=== PATIENT | female | born 1960 | race Caucasian/White ===

== ENCOUNTER 2018-05-17 03:16 | Inpatient (IN) | payer OTHER ==
[~2018-05-17] VITALS: Ht 160 cm; Wt 81.2 kg
[~2018-05-17 03:16] MED LIST: ABILIFY2 MG PO; DEXILANT60 M1 PO; DIOVAN320 M1 PO; FIORINAL 50-321 EACH; FLONASE ALLERG9.9 ML; LEVOTHYROXINE175 MCG PO; WELLBUTRIN XL300 M2 PO; XANAX0.5 M1 PO
--- NOTE | 2018-05-17 09:19 | Surg Short-stay <48hrs Dis Sum ---
Visit Information Visit Dates Admission Date: 05/17/18 Discharge Date: 05/18/18 Surgical Short Stay DC Summary Admission Diagnosis: Primary osteoarthritis right hip Final Diagnosis: same sp Total hip arthroplasty, right Procedure(s): Total hip arthroplasty, right Summary/Significant Findings: Patient was admitted to the hospital for an elective total joint replacement. Procedure was tolerated well and patient was transferred to a general surgical floor. Diet was advanced and tolerated. Physical therapy performed evaluation and treatment. At time of hospital discharge, vital signs were stable, neurovascular status was intact, and pain was controlled with the use of oral pain medications. Condition at Discharge: stable Discharge Disposition: home health services Discharge instructions provided to patient/family: Yes Post discharge follow-up plan: Follow up with Dr. Tuttle in 6 weeks from date of surgery. Please call his office to schedule/confirm this appointment.
--- NOTE | 2018-05-17 09:21 | Patient Discharge Instructions ---
Discharge Instructions General Discharge Information You were seen/treated for: Primary osteoarthritis, right hip You had these procedures: Total hip arthroplasty, right Watch for these problems: Increasing pain despite the use of pain medication Increasing redness, warmth or swelling Drainage of any type from incision Inability to bear weight on operative leg Persistent nausea and vomiting Fever greater than 101.5 degrees Other wound care: Please keep wound clean and dry. No ointments or lotions of any type on or near incision. Your dressing will be changed by your nurse on the second day after your surgery. Daily dry dressing changes are recommended each day thereafter. Do not soak your wound- no tub baths/swimming. You may shower 48hr after surgery. Special Instructions: Aspirin: You are taking this medication to help prevent blood clot formation. Please take with food to protect your stomach lining. Please take as directed. Constipation: Pain medication can cause constipation. It is recommended that you take Colace and Miralax each day. Discontinue this medication if you develop loose stool or diarrhea. If you wish to continue this medication, it is available over the counter. If you are unable to move your bowels or unable to pass gas and are developing bloating, nausea, or vomiting as a result, please contact your doctor. Diet Continue normal diet: Yes Activity Activity Limited to: Weight bear as tolerated Additional ACTIVITY Info: use assistive devices as needed Acute Coronary Syndrome Inclusion Criteria At DC or during hospital stay patient has or had the following: ACS DIAGNOSIS No Discharge Core Measures Meds if any: Prescribed or Continued at Discharge Meds if any: NOT Prescribed or Continued at Discharge Congestive Heart Failure Inclusion Criteria At DC or during hospital stay patient has or had the following: CHF DIAGNOSIS No Discharge Core Measures Meds if any: Prescribed or Continued at Discharge Meds if any: NOT Prescribed or Continued at Discharge Cerebrovascular accident Inclusion Criteria At DC or during hospital stay patient has or had the following: CVA/TIA Diagnosis No Discharge Core Measures Meds if any: Prescribed or Continued at Discharge Meds if any: NOT Prescribed or Continued at Discharge Venous thromboembolism Inclusion Criteria VTE Diagnosis No VTE Type NONE VTE Confirmed by (Test) NONE Discharge Core Measures - Per Current guidelines, there needs to be overlap - treatment for the first 5 days of Warfarin therapy. - If discharged on Warfarin prior to 5 days of - overlap therapy, the patient will need to be - assessed for post discharge needs including - *Post discharge parental anticoagulation - *Warfarin and/or parental anticoagulation education - *Follow up date to check INR post discharge At least 5 days overlap therapy as Inpatient No Meds if any: Prescribed or Continued at Discharge Note: Overlap Therapy is Warfarin and Anticoagulant Meds if any: NOT Prescribed or Continued at Discharge
--- NOTE | 2018-05-17 09:37 | Admission Core Measures ---
Acute Coronary Syndrome (CM) ACS Core Measures Acute Coronary Syndrome Diagnosis No Congestive Heart Failure (NEW) CHF Core Measures Congestive Heart Failure Diagnosis No Cerebrovascular Accident CVA Core Measures CVA/TIA Diagnosis No Venous Thromboembolism VTE Core Dillon (View Protocol) VTE Risk Factors Surgery No Mechanical VTE Prophylaxis d/t N/A MechProphylax Ordered No VTE Pharm Prophylaxis d/t NA PharmProphylax ordered Problem List As ranked by this Provider includes Assessment & Plan 1. Primary osteoarthritis of right hip HOME MEDS Home Med List Alprazolam (Xanax) 0.5 MG TABLET 1 TAB PO DAILY NEEDED ANXIETY (Reported) Aripiprazole (Abilify) 2 MG TABLET 1 TAB PO DAILY DEPRESSION (Reported) Bupropion HCl (Wellbutrin XL) 300 MG TAB.ER.24H 1 TAB PO DAILY DEPRESSION ( Reported) Dexlansoprazole (Dexilant) 60 MG CAP.DR.BP 1 CAP PO DAILY GERD (Reported) Levothyroxine Sodium 175 MCG TABLET 1 TAB PO DAILY REPLACEMENT (Reported) Valsartan (Diovan) 320 MG TABLET 1 TAB PO DAILY HTN (Reported)
[2018-05-17] MEDS ORDERED: MIRALAX17 G1 PO (10:01)
[2018-05-17] MEDS ORDERED: ASPIRIN EC81 M1 PO (10:01)
[2018-05-17] MEDS ORDERED: COLACE100 M1 PO (10:01)
[2018-05-17] MEDS ORDERED: DILAUDID2 M1 PO (10:01)
--- NOTE | 2018-05-17 10:39 | RADIOLOGY REPORT ---
EXAMINATION: XR HIP, RIGHT CLINICAL INFORMATION: In PACU. Status post total hip replacement. COMPARISON: None TECHNIQUE: Two views of the right hip. FINDINGS: The patient is status post total right hip arthroplasty with anatomic alignment of the prosthesis seen. No hardware failure or [place] bone fracture is noted. Mild soft tissue changes and emphysema related to recent surgical procedure are noted. IMPRESSION: Anatomic alignment status post total right hip arthroplasty. No hardware failure or [place] bone fracture seen.
[2018-05-17 11:24] VITALS: BP 120/80
--- NOTE | 2018-05-17 13:26 | PN- Student ---
Ashley Torres 05/17/18 1314: Subjective Subjective: Saw pt post-op on the floor and she was doing ok. Pt did have an episode of nausea and vomited once. She was given zofran with some relief. Her pain is being managed with PO tylenol and is tolerable at this point. She denies any cp/ sob. Hasn't been seen by PT or oob yet. No ulloa, still awaiting post-op void. Objective Objective: Exam: Gen: O&Ax3, sitting up in a chair, appears slightly in pain,uncomfortable, but in no apparent distress Lungs: breathing non-labored Ext: compression wrap in place on right leg- clean/dry/intact. Strength, pulses, sensation intact bilaterally. Alps in place. Skin warm/dry. Results Results: Vital Signs Date Time Temp Pulse Resp B/P B/P Pulse O2 O2 Flow FiO2 Mean Ox Delivery Rate 05/17 1212 63 98 Room Air Room Air 05/17 1124 Room Air 05/17 1124 96.7 78 18 120/80 Room Air Last 24 Hours I&Os 05/17 1600 05/17 0800 05/17 0000 Intake Total Output Total Balance Patient 179 lb Weight Weight Bed scale Measurement Method Orders Procedure Date/time Status CBC WITHOUT DIFFERENTIAL 05/18 0600 Active BASIC ELECTROLYTES PLUS BUN&CR 05/18 0600 Active Regular Diet 05/17 L Active Weight 05/17 1121 Complete Vital Signs 05/17 1121 Active Teach/Educate 05/17 1121 Active Pain Treatment and Response 05/17 1121 Active Nutritional Intake, Monitor 05/17 1121 Active Isolation 05/17 1121 Active Intake & Output 05/17 1121 Active Patient Care Conference 05/17 1121 Active Activity/Ambulation 05/17 1121 Active INCENTIVE SPIROMETRY TRX (GEN) 05/17 1117 Active PT Evaluate & Treat 05/17 1117 Active Pathway - chart 05/17 1117 Active Admit to inpatient 05/17 1117 Active Patient Data 05/17 1117 Active Wound Care/Dressing 05/17 1117 Active VTE Mechanical Prophylaxis 05/17 1117 Complete VTE Mechanical Prophylaxis 05/17 1117 Active Vital Signs 05/17 1117 Active Heat/Cold Therapy 05/17 1117 Active Activity/Ambulation 05/17 1117 Complete Activity/Ambulation 05/17 1117 Active PATHOLOGY SPECIMEN 05/17 0908 Complete TRANSFER ORDERS 05/17 0855 Complete Code Status 05/17 0848 Active Assessment/Plan Assessment: This ia 57 yo female with a PMHx of htn, hypothyroid that is POD 0 s/p right total hip arthroplasty. Plan: -Enteric coated aspirin, alps for dvt ppx -Zofran for nausea -Reg diet, as tolerated by pt -c/w IV fuids -No ulloa, awaiting void post-op -Work w/ PT, WBAT -Pain control as ordered -Prilosec for GI ppx -C/w IV abx infusion until complete -Will order AM labs -Encourage IS, oob, ambulation -Pt plans to discharge to home w/ home health services
[2018-05-17 14:13] VITALS: BP 130/68
--- NOTE | 2018-05-17 14:46 | Operative Report ---
Operative/Inv Procedure Report Surgery Date: 05/17/18 Name of Procedure: Right total hip replacement Pre-Operative Diagnosis: Primary right hip DJD Post-Operative Diagnosis: Same Estimated Blood Loss: 300 Surgeon/Disability Services Coordinator: Marry BERGER,Tyler Gu Anesthesia: general endotracheal tube, block Operative/Procedure Note Note: Description of Procedure: The patient was taken to the operating room and positively identified. After induction of spinal anesthesia and administration of appropriate pre-operative antibiotics, the patient was positioned supine on the operating room table and all bony prominences were well padded. After performing a surgical timeout, the right lower extremity was prepped and draped in the usual sterile fashion. A direct anterior approach was made to the right hip. The incision was carried sharply through superficial soft tissues to the level of the fascia. Meticulous hemostasis was maintained with Bovie electocautery. The fascia over the tensor fascia umer muscle was opened sharply and the interval between the TFL and the sartorius was entered bluntly taking care to stay lateral to the lateral femoral cutaneous nerve. Retractors were placed around the femoral neck and the pericapsular fat was identified. The ascending branches of the lateral femoral circumflex vessels were identified and carefully coagulated. The pericapsular fat and anterior capsule were then resected. A napkin ring osteotomy was performed and the femoral head was removed without difficulty. Attention was then turned to the acetabulum. After appropriate placement of retractors, the acetabulum was exposed. Soft tissue was cleaned from the acetabular margin and notch. Overhanging osteophytes were removed and the teardrop was exposed. The acetabulum was then sequentially reamed to accept a 54 mm [place] Tritanium hemispherical solid shell. This was impacted into place in the appropriate position and fitted with a 32 mm Trident X3 zero degree polyethylene insert. Attention was then turned to the femur. After performing the appropriate ligament releases, the proximal femur was exposed. It was then sequentially broached to accept a size #4 Lottie Accolade II stem. This was trialed for leg length and stability. The trial component was removed and the final component was impacted into place. The trunnion was carefully cleaned and fit with a 32 mm, +0 Biolox delta ceramic femoral head. The hip was reduced and put through a full range of motion and found to be stable. The articular space was then irrigated with sterile saline. The periarticular soft tissues were infilitrated with Marcaine. The fascial layer was closed with interrupted #1 vicryl suture and the skin was re-approximated with interrupted 2 -0 vicryl. The skin was closed with a running 3-0 V-Lock suture. Steri-strips and a sterile dressing were applied. The patient was awakened and taken to the recovery room in satisfactory condition.
[2018-05-17 16:00] VITALS: BP 140/56
[2018-05-17 18:00] VITALS: BP 122/52
[2018-05-17 23:34] VITALS: BP 148/73
[2018-05-18 06:00] VITALS: BP 132/64
[2018-05-18 07:30] LABS: ABSOLUTE BASOPHIL COUNT 0 /CUMM (0.0-0.2); ABSOLUTE EOSINOPHIL COUNT 0 /CUMM (0.0-0.7); ABSOLUTE GRANULOCYTE CT 4.7 /CUMM (1.4-6.5); ABSOLUTE MONOCYTE COUNT 0.6 /CUMM (0.10-0.60); BASOPHIL % 0.3 % (0.0-2.0); EOSINOPHIL % 0 % (0-5); GRANULOCYTE % 74.1 % (42.2-75.2); HEMATOCRIT 31.5 % (37-47); MEAN CORPUSCULAR HGB 29.7 PG (27.0-31.0); MEAN CORPUSCULAR HGB CONC 34.1 G/DL (33.0-37.0); MEAN CORPUSCULAR VOLUME 87.1 FL (81.0-99.0); MEAN PLATELET VOLUME 9.9 FL (7.4-10.4); PLATELET COUNT 175 /CUMM (130-400); RBC DISTRIBUTION WIDTH 13.2 % (11.5-14.5); RED BLOOD CELL CT 3.62 /CUMM (4.20-5.40); WHITE BLOOD CELL COUNT 6.4 /CUMM (4.8-10.8)
--- NOTE | 2018-05-18 07:30 | PN- Orthopedic ---
Subjective Subjective: POD#1 S/P RIGHT KARLEY NO MAJOR ISSUES OVERNIGHT SITTING UP IN CHAIR NOW DENIES CP, SOB, NO N+V WITH DIET Objective Vital Signs and I&Os Vital Signs Date Time Temp Pulse Resp B/P B/P Pulse O2 O2 Flow FiO2 Mean Ox Delivery Rate / 0600 98.7 78 18 132/64 98 Room Air 05/17 2334 100.2 79 20 148/73 100 Room Air 05/17 2038 80 126/72 / 1800 98.3 81 16 122/52 99 Room Air 05/17 1600 97.9 72 18 140/56 100 Room Air 05/17 1413 97.5 76 16 130/68 99 Room Air 05/17 1406 Room Air 05/17 1212 63 98 Room Air Room Air 05/17 1124 Room Air 05/17 1124 96.7 78 18 120/80 Room Air Intake & Output / 0800 /14 0000 13 1600 /13 0800 05/17 0000 12 1600 Intake Total 800 540 700 Output Total 400 600 Balance 400 -60 700 Intake, IV 600 300 400 Intake, Oral 200 240 300 Output, Urine 400 600 Patient 179 lb Weight Weight Bed scale Measurement Method Physical Exam: CV: RRR LUNGS: CLEAR ABD: SOFT, +BS EXT: DRSG DRSY THIGH SWELLING NOTED BUT SOFT TO PALP DISTAL CMS INTACT BILAT Assessment/Plan Assessment/Plan ORTHO STABLE PLAN OOB WITH PT/STAIRS TODAY CONT CURRENT REGIME HOME D/C PROBABLE LATER TODAY Core Measures Venous Thromboembolism VTE Risk Factors Surgery No Mechanical VTE Prophylaxis d/t N/A MechProphylax Ordered No VTE Pharm Prophylaxis d/t NA PharmProphylax ordered
[2018-05-18 08:15] VITALS: BP 122/60
[2018-05-18 08:34] VITALS: BP 103/58
[2018-05-18] MEDS ORDERED: NORCO 5-325 TA1 EACH PO (12:42)
== END 2018-05-18 12:55 | disposition home health service (06) | DRG 470 ==
LOC: SDA 03:16 → 2NB 03:16 → ENRESERV 09:57 → ENTRNSPT 10:46 → EDTRNSPT 10:55 → EDTRNSPTSTS 10:55 → CMPTRNSPT 11:12 → 2NB 11:15 → ENPENDDIS 05-18 08:15 → ENTRNSPT 05-18 12:25 → EDTRNSPTSTS 05-18 12:52 → EDTRNSPT 05-18 12:52 → 2NB 05-18 12:55 → CMPTRNSPT 05-18 13:08
PROVIDERS: Physician Assistant Surgical
PROC: 0SR904A Replacement of Right Hip Joint with Ceramic on Polyethylene Synthetic Substitute, Uncemented, Open Approach (ICD-10-PCS; principal; 2018-05-17)
DX: M16.11 Unilateral primary osteoarthritis, right hip (principal); I10 Essential (primary) hypertension; D64.9 Anemia, unspecified; K21.9 Gastro-esophageal reflux disease without esophagitis; E06.3 Autoimmune thyroiditis; F41.9 Anxiety disorder, unspecified; F32.9 Major depressive disorder, single episode, unspecified; K58.9 Irritable bowel syndrome, unspecified
CPT/HCPCS: 2NBSP; 36592; 73502-RT; 82436; 97110-GO; 97116-GO; 97161-GP; 97530-GO; J0131; J0690; J0735; J2405; J2550; J3250; J3490